=== PATIENT | female | born 1965 | race Caucasian/White ===

== ENCOUNTER → 2022-08-26 | Outpatient (CLI) | payer SELFPAY ==
--- NOTE | 2022-08-26 10:35 | STE_ITS ---
Reason For Study: CHEST PAIN Stress Results Maximum Predicted HR: 163 bpm Target HR: 139 bpm % Maximum Predicted HR: 92 % DurationHeart Rate Stage (mm:ss) (bpm) BP BASELINE 50 132/70 STAGE 1 3:00 81 128/70 STAGE 2 3:00 109 142/82 STAGE 3 3:00 126 172/82 STAGE 4 1:00 150 / RECOVERY 64 138/84 Stress Duration: 10:00 mm:ss Maximum Stress HR: 150 bpm Baseline Echocardiogram Findings Stress Echo Wall motion Data Resting WM Intermediate WM Stress WM ECHO/Stress Test Echo w/o Contrast Interpretation Summary Stress echocardiogram. 57-year-old lady with a history of chest discomfort. Stress protocol: Resting EKG demonstrates normal sinus rhythm with a rate of 48 bpm resting bloo d pressure is 132/70 mmHg. The patient exercised according to the regular Minor protocol for total d uration of 10 minutes completing 1 minute into stage IV of the Minor protocol the maximum heart rate attained was 151 bpm which was 92% of max impacted heart rate the maximum workload was 13.4 metaboli c equivalents. At rest there were no ST or T wave changes noted to suggest ischemia and at peak e xercise upsloping ST changes were noted with did not meet the criteria for ischemia the test was ter minated due to the target heart rate being achieved no chest pain was noted the peak blood pressur e was 172/82 mmHg and rate-pressure product was 21,600. This is a normal blood pressure response to e xercise. Stress echocardiogram. Resting echocardiographic evaluation demonstrated overall preserved left ventri cular systolic function at rest. The right ventricle appeared to be mildly prominent with evid ence of a D-shaped septum during diastole. During exercise there was thickening of left ventricula r cavity valadez and reduction of low ventricular cavity size with peaking of ejection fraction of 6 5% with no wall motion abnormalities to suggest ischemia. Conclusion: Exercise stress echo with no EKG criteria for ischemia at a high workload Excellent functional aerobic capacity. Recommend formal echo to measure right ventricular pressures. Ordering Physician: Cliff Quinones Referring Physician: Cliff Quinones Performed By: Kai Murray, [facility]
== END | disposition home or self-care (01) ==
PROVIDERS: PCP Physician Assistant; Referring Provider Internal Medicine Cardiovascular Disease; Visit Provider Internal Medicine Cardiovascular Disease
DX: R07.9 Chest pain, unspecified (principal)
CPT/HCPCS: 93017; 93350

== ENCOUNTER → 2022-10-14 | Outpatient (CLI) | payer SELFPAY ==
[2022-10-14 09:52] LABS: Anion Gap 6 (5-15); BUN 16 mg/dL (7-18); Calcium,Total 9.4 mg/dL (8.5-10.1); Chloride 103 mmol/L (98-107); Creatinine, Serum 0.89 mg/dL (0.55-1.02); EST Glomerular Filtration Rate 69 mL/min (>60); Est Glom Filt Rate - Afr Amer 84 mL/min (>60); Glucose 98 mg/dL (74-106); Potassium 3.9 mmol/L (3.5-5.1); Sodium Level 138 mmol/L (136-145)
== END | disposition home or self-care (01) ==
LOC: LAB 08:38
PROVIDERS: PCP Physician Assistant; Referring Provider Physician Assistant; Visit Provider Physician Assistant
DX: I10 Essential (primary) hypertension (principal)
CPT/HCPCS: 36415; 80048

== ENCOUNTER → 2022-10-21 | Outpatient (CLI) | payer SELFPAY ==
--- NOTE | 2022-10-21 08:20 | RDU_ITS ---
Reason For Study: HTN Right Renal Artery Left Renal Artery Right renal artery ostium Left renal artery ostium 165.9/40.8 130.8/40.8 RSV/EDV. PSV/EDV. Right renal artery proximal 124/42 Left renal artery proximal PSV/EDV PSV/EDV. 145.1/46.7 . Right renal artery mid 151.3/48.8 Left renal artery mid 114.1/32.1 PSV/EDV. PSV/EDV . Right renal artery distal Left renal artery distal 120.5/30.5 136.1/50.8 PSV/EDV. PSV/EDV. Right RAR 1.70. Left RAR 1.86. Right Renal Parenchyma Left Renal Parenchyma Upper Pole Medula 23.4/6.4 PSV/EDV. Left upper pole medulla 27/10 Right upper pole medulla EDR 0.3 . PSV/EDV . Right upper pole medulla R.I. Left upper pole medulla EDR 0.4 . 0.73 . Left upper pole medulla R.I. 0.63 . Upper [place] Cortx 16.3/6.4 PSV/EDV. UP Cortex 21/7.8 PSV/EDV. Right upper pole cortex EDR 0.4 . Left upper pole cortex EDR 0.4 . Right upper pole cortex R.I. 0.61 . Left upper pole cortex R.I. 0.63 . Right lower Pole medulla 22.9/7.5 Left lower Pole medulla 28.7/9.5 PSV/EDV . PSV/EDV . Right lower pole medulla EDR 0.3 . Left lower pole medulla EDR 0.3 . Right lower pole medulla R.I. Left lower pole medulla R.I. 0.67 . 0.67 . Lower Pole Cortx 21/9.5 PSV/EDV. Lower Pole Cortex 20.1/8 PSV/EDV. Left lower pole cortex EDR 0.5 . Right lower pole cortex EDR 0.4 . Left lower pole cortex R.I. 0.55 . Right lower pole cortex R.I. 0.60 . Left Renal Hilar Right Renal Hilar LT Hilar avg 55.4/21.3 PSV/EDV . Right Hilar avg 57.2/20.6 PSV/EDV. Left hilar acceleration time 40 Right hilar acceleration time 70 m/sec. m/sec. Left Renal Dimensions Right Renal Dimensions Left kidney size 10.75 cm . Right kidney size 10.72 cm . Left cortical dimension 1.36 cm . Right cortical dimension 1.21 cm . Aorta Proximal abdominal aorta 1.75 x 1.77 cm . Proximal abdominal aorta peak systolic velocity is 89.2 cm/sec . Distal abdominal aorta 1.33 x 1.34 cm . Distal abdominal aorta peak systolic velocity is 70.7 cm/sec . VL/Renal Artery Duplex Ultrasound Interpretation Summary Right renal artery patent with normal velocities and no evidence of stenosis Left renal artery patent with normal velocities and no evidence of stenosis Right renal vein patent Left renal vein patent Right kidney normal in size Left kidney normal in size Ordering Physician: Alea Ponce Referring Physician: Geraldine Steward Performed By: Jannie Asher RVT
== END | disposition home or self-care (01) ==
LOC: CVS 08:19
PROVIDERS: PCP Physician Assistant; Referring Provider Nurse Practitioner Gerontology; Visit Provider Nurse Practitioner Gerontology
DX: I10 Essential (primary) hypertension (principal)
CPT/HCPCS: 93975

== ENCOUNTER → 2024-01-31 | Outpatient (CLI) | payer SELFPAY | END | disposition home or self-care (01) | PROVIDERS: PCP Physician Assistant; Referring Provider Nurse Practitioner Gerontology; Visit Provider Nurse Practitioner Gerontology | DX: R00.2 Palpitations (principal); I45.9 Conduction disorder, unspecified; R00.1 Bradycardia, unspecified | CPT/HCPCS: 93225; 93226 ==